=== PATIENT | female | born 1960 | race Caucasian/White ===

== ENCOUNTER → 2016-11-24 | Outpatient (CLI) | payer MEDICAID ==
[2016-11-24 14:47] LABS: BUN 13 mg/dL (7-18)
[2016-11-24 16:03] LABS: GFR (ESTIMATED) 87 ML/MIN (59-)
== END ==
LOC: CARL-LAB 11:47
PROVIDERS: Nurse Practitioner Family
DX: E11.42 Type 2 diabetes mellitus with diabetic polyneuropathy (principal); E78.1 Pure hyperglyceridemia